=== PATIENT | female | born 1990 | race American Indian/Alaskan Native ===

== ENCOUNTER 2018-08-13 10:38 | Inpatient (IN) | payer OTHER ==
[2018-08-13 10:57] VITALS: BMI 32.5
[2018-08-13] MEDS ORDERED: Lactated Ringer's 1,000 ML IV ONE (10:57)
[2018-08-13 12:22] LABS: BASO # 0.1 K/uL (0.0-0.2); BASO % 0.6 % (0.0-2.0); EOS # 0.1 K/uL (0.0-0.7); EOS % 1.4 % (0.0-4.0); HEMOGLOBIN 10.7 g/dL (12.0-16.0); LYMPH # 1.6 K/uL (1.0-4.3); LYMPH % 18.2 % (20.0-40.0); MEAN CELL VOLUME 77.6 fl (81.0-99.0); MEAN CORPUSCULAR HEMOGLOBIN 25.3 pg (27.0-31.0); MEAN CORPUSCULAR HGB CONC 32.5 g/dL (33.0-37.0); MONO # 0.6 K/uL (0.0-0.8); MONO % 6.3 % (0.0-10.0); NEUT # 6.5 K/uL (1.8-7.0); NEUT % 73.5 % (50.0-75.0); NRBC % 0.1 % (0.0-0.0); RBC 4.25 Mil/uL (3.80-5.20); RED CELL DISTRIBUTION WIDTH 16.8 % (11.5-14.5); WHITE BLOOD COUNT 8.9 K/uL (4.8-10.8)
[2018-08-13] MEDS ORDERED: Oxytocin 30 UNIT 30 UNITS/500 ML BAG IV ONE ×2 (12:37→18:31)
[2018-08-13] MEDS ORDERED: OXYTOCIN/0.9 % NS 20 UNIT/1,000 ML BAG IV SCH (12:45)
[2018-08-13] MEDS ORDERED: Lactated Ringer's 1,000 ML IV SCH (13:00)
--- NOTE | 2018-08-13 13:25 | OBADHP ---
Datetime: 08/13/2018 11:23 Admit Comment, IP Provider: 28 yo f at 39.3 GA presents because she is unsure if her water b roke. At 6:30 this morning, patient went to the restroom and was unsure if her water broke but she began experencing lower pelvic and back pain, intermittently every 10 minutes. She denies gush of fluid, v aginal bleeding, dysuria, freqency and urgency. She reports good movement. OB history: 1 elective surgical . 1 NVD- male- induced for unknown reason. No or complications. Social history: Quit smoking 6 years ago; previously smoked 1 cigarette/day for 2 years. Denies al cohol or illicit drug use. Family history: Maternal grandmother with DM and Mother with HTN Medical history: Denies Medications: PNV daily Allergies: NKDA Surgical history: Denies. P.E: no acute distress. Heart: S1 and S2. No murmurs, gallops or rubs. Lungs: Clear auscultation bilaterally. Vaginal exam: Maintenance Clerk in room. 5 cm dilated/ -1 station. monitor: Moderate variability; Accelerations present; No Decelerations; FHR: 125 Assessment: 28 yo f at 39.3 GA presents because she is unsure if her water broke found to be in active labor. Plan - Admit patient L _ D for active labor. - CBC and type and screen / RPR / IV access, monitoring, monitor labor progress, - Discussion about her condition including labor, delivery, pain management, and care. Discussed with Dr. Norma Esparza, PGY [address] Green: I have evaluated the patient independently and I agree with the above Pelvic Type - PN: Adequate Extremities - PN: Not Done Abdomen - PN: Normal Back - PN: Normal Breast - PN: Normal Lungs - PN: Normal Heart - PN: Normal Thyroid - PN: Not Done Neurologic - PN: Normal HEENT - PN: Normal General - PN: Normal FHR - Baseline A Provider: 125 Comments, ACOG Physical Exam: P.E: no acute distress. Heart: S1 and S2. No murmurs, gallops or rubs. Lungs: Clear auscultation bilaterally. Vaginal exam: Maintenance Clerk in room. 5 cm dilated/ -1 station. monitor: Moderate variability; Accelerations present; No Decelerations; FHR: 125 Vital Signs Provider: Reviewed; Within Normal Limits IP Chief Complaint: Uterine contractions; Suspected ruptured membranes NICHD Variability Prov Fetus A: Moderate 6-25bpm NICHD Accel Fetus A IP Provider: [id number] FHR Category Provider Fetus A: Category I NICHD Decel Fetus A IP Provider: None Dilatation, Provider: 5 Station, Provider: -1 Genitourinary Exam: Normal DTRs - PN: Not Done EGA AdmitDate IP: 39.3 IP Adm Impression: Term, intrauterine ; Active labor IP Admit Plan: Admit to unit; Initiate labor protocol
--- NOTE | 2018-08-13 15:40 | OBPN ---
Datetime: 08/13/2018 15:31 IP Progress Impression: Normal progression of labor IP Informed Consent Obtain: Vaginal Delivery IP Procedures: Artificial ROM; Sterile Vag Exam IP Progress Plan: Continue present management Membranes, Provider: Ruptured Amniotic Fluid Color, Provider: Clear Contraction Comments Provider: q 3 mins FHR - Baseline A Provider: 140 IP Progress Note Comment: Patient feeling comfortable, does not want any pain medication at this zain e VE=6/80/-1 FHR = 140 mod mendoza, +accels, no decels TOCO= ricki q 3 mins A/P 1. Patient progressing, now ruptured and 6cm 2. CEFM and TOCO 3. Re-evaluate as needed Vital Signs Provider: Reviewed; Within Normal Limits NICHD Accel Fetus A IP Provider: [id number] NICHD Variability Prov Fetus A: Moderate 6-25bpm Dilatation, Provider: 6 Effacement, Provider: 80 Station, Provider: -1 NICHD Decel Fetus A IP Provider: None Datetime: 08/13/2018 11:23 FHR Category Provider Fetus A: Category I
[2018-08-13] MEDS ORDERED: Fentanyl/Bupivacaine HCl 250 ML EPI ONE (17:19)
--- NOTE | 2018-08-13 18:36 | OBPN ---
Datetime: 08/13/2018 18:32 IP Informed Consent Obtain: Vaginal Delivery IP Progress Plan: Continue present management Membranes, Provider: Ruptured Contraction Comments Provider: q 2-3 mins FHR - Baseline A Provider: 125 IP Progress Note Comment: Patient comfortable s/p epidural. VE=7/100/-1 as per RN OOM=269 mod mendoza, +accels, early decels TOCO= ricki q 2-3 mins A/P 1. Patient progressing slowly since ruptured. Will start Pitocin for augmentation 2. CEFM and TOCO 3. Re-evaluate as needed Vital Signs Provider: Reviewed NICHD Accel Fetus A IP Provider: [id number] NICHD Variability Prov Fetus A: Moderate 6-25bpm Dilatation, Provider: 7 Effacement, Provider: 100 Station, Provider: -1 NICHD Decel Fetus A IP Provider: Early
[2018-08-13] MEDS ORDERED: Bupivacaine HCl 0.25% PF (30 ml) Inj ONE (19:28)
[2018-08-13] MEDS ORDERED: Lidocaine 2% MPF (5 ml) Inj ONE (20:12)
[2018-08-13] MEDS ORDERED: Benzocaine/Menthol SPRAY TOP PRN (21:05)
--- NOTE | 2018-08-13 21:14 | OBDS ---
MATERNAL INFORMATION Provider Comments: of live male over intact perineum, cephalic, ROB, followed by shoulde rs and rest of , mouth and nose suctioned on mother's chest, cord clamped and cut, cord blood o btained, placenta delivered spontaneously, first degree laceration repaired with 2-0 vicryl rapide, E BL=50 mL, pt tolerated procedure well LABOR SUMMARY EDC: 08/17/2018 00:00 No. Babies in Womb: 1 LABOR INFORMATION Group B Beta Strep: Negative MEMBRANES Membranes Rupture Method: Artificial Rupture of Membranes: 08/13/2018 15:00 Amniotic Fluid Color: Clear Amniotic Fluid Amount: Small Amniotic Fluid Odor: Normal
[2018-08-14 06:31] LABS: HEMOGLOBIN 9.9 g/dL (12.0-16.0); MEAN CELL VOLUME 77.5 fl (81.0-99.0); MEAN CORPUSCULAR HEMOGLOBIN 25.2 pg (27.0-31.0); MEAN CORPUSCULAR HGB CONC 32.5 g/dL (33.0-37.0); RBC 3.94 Mil/uL (3.80-5.20); RED CELL DISTRIBUTION WIDTH 16.9 % (11.5-14.5); WHITE BLOOD COUNT 12.9 K/uL (4.8-10.8)
--- NOTE | 2018-08-14 10:15 | OBPPN ---
Datetime: 08/14/2018 10:08 PP Pain Prov: Within normal limits PP Nausea Prov: Denies PP Flatus Prov: Yes PP BM Prov: Yes PP Breasts Prov: Normal PP Heart Prov: Normal PP Lungs Prov: Normal PP Abdomen/Uterus Prov: Normal PP Lochia Prov: Normal PP Vulva/Perineum Prov: Normal PP CVA Tenderness Prov: Normal PP Extremities Prov: Normal PP Progress Prov: Normal PP Impression Prov: Normal progression PP Plan Prov: Continue present management PP Progress Note Prov: She feels fine H/H 08/12 A; S/P day 1 Anemia asymptomatic PLAN: anticiapte dishcarge tmrw Vital Signs Provider PP: Within Normal Limits
[2018-08-15 23:13] VITALS: BP 128/75; PULSE 81; RESP 18; TEMP 98; O2SAT 100
== END 2018-08-15 16:00 | disposition home or self-care (01) | DRG 373 ==
LOC: H.EROB2 10:38 → H.L&D 10:57 → H.OB/GYN 22:54
PROVIDERS: ADMIT Obstetrics & Gynecology; ATTEND Obstetrics & Gynecology
PROC: 10E0XZZ Delivery of Products of Conception, External Approach (ICD-10-PCS; principal; 2018-08-13)
PROC: 0HQ9XZZ Repair Perineum Skin, External Approach (ICD-10-PCS; 2018-08-13)
PROC: 10907ZC Drainage of Amniotic Fluid, Therapeutic from Products of Conception, Via Natural or Artificial Opening (ICD-10-PCS; 2018-08-13)
PROC: 4A1HXCZ Monitoring of Products of Conception, Cardiac Rate, External Approach (ICD-10-PCS; 2018-08-13)
DX: O70.0 First degree perineal laceration during delivery (principal); O90.81 Anemia of the puerperium; Z3A.39 39 weeks gestation of pregnancy; Z37.0 Single live birth; Z87.891 Personal history of nicotine dependence